=== PATIENT | male | born 1955 | race African-American/Black ===

== ENCOUNTER 2017-01-19 09:16 | Day surgery (SDC) | payer OTHER ==
[2017-01-13 12:43] VITALS: BMI 26.1
[2017-01-19] MEDS ORDERED: PROPOFOL 20 ML ONE ×3 (09:40→11:03)
[2017-01-19 12:25] VITALS: TEMP 97.8
[2017-01-19 12:27] VITALS: BP 147/88; PULSE 60
== END 2017-01-19 12:25 | disposition home or self-care (01) ==
LOC: FASU-ENDO 09:16
PROVIDERS: ATTEND Internal Medicine Gastroenterology
PROC: 0DJD8ZZ Inspection of Lower Intestinal Tract, Via Natural or Artificial Opening Endoscopic (ICD-10-PCS; principal; 2017-01-19 11:21)
DX: Z12.11 Encounter for screening for malignant neoplasm of colon (principal)